=== PATIENT | female | born 1985 | race Caucasian/White ===

== ENCOUNTER 2017-02-07 07:01 | Day surgery (SDC) | payer SELFPAY ==
[2017-02-07] VITALS (17 sets, daily range): BP systolic 116–147; BP diastolic 64–95; PULSE 68–114; RESP 13–18; TEMP 97.6–99; O2SAT 91–99; Ht 165.1 cm; Wt 87.6 kg
[~2017-02-07] VITALS: Ht 165.1 cm; Wt 87.6 kg
[~2017-02-07 07:01] MED LIST: FENTANYL 100mcg/2ml INJECTION IV PRN; LIDOCAINE 1% (10mg/ml) 2ml SDV INJ ONE; LR 1,000 ML IV SCH; MIDAZOLAM 5mg/5ml INJECTION IV PRN
--- OUTSIDE RECORDS SUMMARY | 2017-02-07 07:06 | XMS REPORT | Continuity of Care Document ---
Author Author [facility] Organization [facility] Address Unknown Phone Unavailable Allergies Active Description Code Type Severity Reaction Onset Reported/Identified Relationship to Patient Clinical Status Yes NO NAME AVAILABLE 24916 DRUG N/A N/A Medications Medication Packaging Start Date Stop Date Route Dosage Sig ONDANSETRON HCL 4 MG/2ML IJ SOLN 08/07/2016 Intravenous 4 ONCE SODIUM CHLORIDE 0.9 % IV BOLUS 08/07/2016 08/07/2016 Intravenous 1000 BOLUS MECLIZINE HCL 25 MG PO TABS 08/07/2016 Oral 25 3 TIMES DAILY PRN IOHEXOL 350 MG/ML IV SOLN 08/07/2016 Intravenous 100 ONCE ONDANSETRON HCL 4 MG/2ML IJ SOLN 12/26/2016 Intravenous 4 ONCE SODIUM CHLORIDE 0.9 % IV BOLUS 12/26/2016 12/27/2016 Intravenous 1000 BOLUS Problems Date Dx Coded Attending Type Code Diagnosis Diagnosed By 06/22/2016 RICHARD FREED S49.91XA Unspecified injury of right shoulder and upper arm, initial encounter 06/22/2016 A S49.91XA Unspecified injury of right shoulder and upper arm, initial encounter 08/07/2016 USMAN HOOPER V 220924 Dizziness USMAN HOOPER 08/07/2016 USMAN HOOPER V 120 Emesis USMAN HOOPER 08/07/2016 USMAN HOOPER V H83.09 Labyrinthitis, unspecified ear USMAN HOOPER 08/07/2016 USMAN HOOPER V J01.90 Acute sinusitis, unspecified USMAN HOOPER 08/07/2016 USMAN HOOPER V N20.0 Calculus of kidney USMAN HOOPER 09/24/2016 V 186 Injections 09/24/2016 V 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 Transsexualism 11/12/2016 A S13.9XXA Sprain of joints and ligaments of unspecified parts of neck, initial encounter 11/12/2016 A W00.9XXA Unspecified fall due to ice and snow, initial encounter 11/16/2016 RICHARD FREED A N30.01 Acute cystitis with hematuria 12/26/2016 JANINA SPENCER V 120 Emesis SPENCER, JANINA Camacho 12/26/2016 JANINA SPENCER V 35 Diarrhea SPENCER, JANINA Camacho 12/26/2016 JANINA SPENCER V R11.2 Nausea with vomiting, unspecified SPENCER, JANINA Camacho 12/26/2016 JANINA SPENCER V R19.7 Diarrhea, unspecified SPENCER, JANINA Camacho 02/02/2017 ADMITTING Z01.818 Encounter for other preprocedural examination Procedures Code Description Performed By Performed On [id number] XR SHOULDER UNILATERAL MIN 2 VIEWS 06/22/2016 Results Test Result Range PAP LIQUID PAP SCREENING - 03/04/15 08:00 PAP RESULT NEGATIVE NEGATIVE HUMAN PAPILLOMAVIRUS - 03/04/15 08:00 HPV RESULT NEGATIVE NEGATIVE CBC WITH DIFF - 03/14/15 08:30 WBC 4.1 10*3/uL 4.3-10.8 RBC 4.61 10*6/uL 4.20-5.40 HGB 12.3 g/dL 12.0-16.0 HCT 36.8 % 37-47 MCV 80 fL 81-99 MCH 27 pg 26-34 MCHC 33 g/dL 31-37 PLATELET COUNT 208 10*3/uL 150-400 RDWCV 14.2 % 11.5-14.5 DIFF TYPE AUTOMATED DIFF NEUTROPHIL % 65 % 36-66 LYMPHOCYTE % 24 % 24-44 MONOCYTE % 9 % 1-10 EOSINOPHIL % 2 % 0-6 BASOPHIL % 1 % 0-2 ABS. NEUTROPHILS 2.7 10*3/uL 1.55-7.13 ABS. LYMPHOCYTES 1.0 10*3/uL 1.0-4.8 ABS. MONOCYTES 0.4 10*3/uL 0.4-1.08 ABS. EOSINOPHILS 0.1 10*3/uL 0.0-0.65 ABS. BASOPHILS 0.0 10*3/uL 0.0-0.11 ABSOLUTE NUCLEATED RBC 0.00 10*3/uL PERCENT NUCLEATED RBC 0 TSH WITH REFLEX TO FREE T4 - 03/14/15 08:30 TSH 2.80 m[iU]/mL 0.35-4.90 URINALYSIS REFLEX TO CULTURE - 04/07/15 13:06 COLOR YELLOW APPEARANCE CLOUDY CLEAR SPECIFIC GRAVITY 1.022 1.005-1.030 PH, URINE 6.0 5.0-9.0 PROTEIN SMALL mg/dL NEGATIVE GLUC NEGATIVE mg/dL NEGATIVE KETONES NEGATIVE mg/dL NEGATIVE BILIRUBIN NEGATIVE NEGATIVE BLOOD MODERATE NEGATIVE NITRITE NEGATIVE NEGATIVE UROBILINOGEN NORMAL mg/dL NORMAL LEUKOCYTE ESTERASE LARGE NEGATIVE WBC'S 33 [HPF] 0-4 RBC'S 7 [HPF] 0-1 MUCUS MANY [LPF] SQUAMOUS EPITHELIAL CELLS 48 [HPF] 0-1 BACTERIA MANY [HPF] URINE CULTURE - 04/07/15 13:06 SOURCE SOURCE: CLEAN CATCH URINE REQUISITION NOTE REQUISITION NOTE: NONE CULTURE RESULTS CULTURE RESULTS: NO FURTHER WORKUP REPORT STATUS REPORT STATUS: 04/09/2015 FINAL CBC WITH DIFF - 04/07/15 13:07 WBC 5.0 10*3/uL 4.0-10.8 RBC 4.65 10*6/uL 4.20-5.40 HGB 12.2 g/dL 12.0-16.0 HCT 37.7 % 37-47 MCV 81 fL 81-99 MCH 26 pg 26-34 MCHC 32 g/dL 31-37 PLATELET COUNT 209 10*3/uL 150-400 RDWCV 14.2 % 11.5-14.5 DIFF TYPE AUTOMATED DIFF NEUTROPHIL % 62 % 36-66 LYMPHOCYTE % 21 % 24-44 MONOCYTE % 14 % 1-10 EOSINOPHIL % 3 % 0-6 BASOPHIL % 1 % 0-2 ABS. NEUTROPHILS 3.1 10*3/uL 1.55-7.13 ABS. LYMPHOCYTES 1.0 10*3/uL 1.0-4.8 ABS. MONOCYTES 0.7 10*3/uL 0.4-1.08 ABS. EOSINOPHILS 0.2 10*3/uL 0.0-0.65 ABS. BASOPHILS 0.0 10*3/uL 0.0-0.11 ABSOLUTE NUCLEATED RBC 0.10 10*3/uL CBC WITH DIFF - 04/22/15 06:46 WBC 3.9 10*3/uL 4.0-10.8 RBC 5.05 10*6/uL 4.20-5.40 HGB 13.2 g/dL 12.0-16.0 HCT 39.3 % 37-47 MCV 78 fL 81-99 MCH 26 pg 26-34 MCHC 34 g/dL 31-37 PLATELET COUNT 203 10*3/uL 150-400 RDWCV 13.6 % 11.5-14.5 DIFF TYPE AUTOMATED DIFF NEUTROPHIL % 64 % 36-66 LYMPHOCYTE % 24 % 24-44 MONOCYTE % 10 % 1-10 EOSINOPHIL % 2 % 0-6 BASOPHIL % 1 % 0-2 ABS. NEUTROPHILS 2.5 10*3/uL 1.55-7.13 ABS. LYMPHOCYTES 0.9 10*3/uL 1.0-4.8 ABS. MONOCYTES 0.4 10*3/uL 0.4-1.08 ABS. EOSINOPHILS 0.1 10*3/uL 0.0-0.65 ABS. BASOPHILS 0.0 10*3/uL 0.0-0.11 ABSOLUTE NUCLEATED RBC 0.10 10*3/uL TYPE AND SCREEN - 04/22/15 06:46 ABO/RH (D) B NEGATIVE ANTIBODY SCREEN NEGATIVE CBC WO DIFF - 04/23/15 06:14 WBC 5.2 10*3/uL 4.0-10.8 RBC 4.14 10*6/uL 4.20-5.40 HGB 11.1 g/dL 12.0-16.0 HCT 32.7 % 37-47 MCV 79 fL 81-99 MCH 27 pg 26-34 MCHC 34 g/dL 31-37 PLATELET COUNT 176 10*3/uL 150-400 RDWCV 13.9 % 11.5-14.5 COMPREHENSIVE METABOLIC PANEL - 12/31/15 15:30 ALBUMIN 4.4 g/dL 3.4-4.8 ALKALINE PHOSPHATASE 79 U/L 29-122 ALT 15 U/L 10-46 AST 18 U/L 16-37 BILIRUBIN,TOTAL 0.5 mg/dL 0.2-1.3 BUN BLOOD 10 mg/dL 6-20 CALCIUM 9.5 mg/dL 8.7-10.5 CHLORIDE 108 mmol/L 99-111 CO2 28 mmol/L 20-36 CREATININE 0.68 mg/dL 0.40-1.10 EGFR > mL/min >59 GLUCOSE 96 mg/dL 74-106 POTASSIUM 3.8 mmol/L 3.6-4.9 PROTEIN TOTAL 7.4 g/dL 6.4-8.3 SODIUM 142 mmol/L 136-145 CBC WITH AUTO DIFFERENTIAL - 12/31/15 15:30 BASOPHILS RELATIVE PERCENT 0.5 % 0.0-2.5 EOSINOPHILS RELATIVE PERCENT 0.8 % <=5.0 HEMATOCRIT 41.3 % 34.9-44.5 HEMOGLOBIN 13.7 g/dL 12.0-15.5 LYMPHOCYTES RELATIVE PERCENT 24.8 % 22.0- 49.0 MEAN CORPUSCULAR HEMOGLOBIN 28.1 pg 26.0- 34.0 MEAN CORPUSCULAR HEMOGLOBIN CONC 33.2 g/dL 31.0-37.0 MEAN CORPUSCULAR VOLUME 84.7 fL 81.6- 98.3 MONOCYTES RELATIVE PERCENT 8.7 % 2.0-9.0 NEUTROPHILS RELATIVE PERCENT 65.2 % 40.0- 75.0 PLATELET COUNT 218 10E9/L 150-450 RED BLOOD CELL COUNT 4.88 10E12/L 3.90- 5.03 RED CELL DISTRIBUTION WIDTH 14.1 % 11.9- 15.5 [id number] 4.5 10E9/L 3.5-10.5 7605254 1.10 10E9/L 0.90-2.90 9813694 0.40 10E9/L 0.30-0.90 0647414 0.00 10E9/L 0.05-0.50 6693551 2.90 10E9/L 1.70-7.00 [id number] 0.00 10E9/L 0.00-0.30 TESTOSTERONE, FREE - 12/31/15 15:30 TESTOSTERONE,FREE 0.4 pg/mL 0.0 - 4.2 TESTOSTERONE, ESOTERIX - 01/20/16 09:56 TESTOSTERONE, ESOTERIX 14 ng/dL CBC WITH AUTO DIFFERENTIAL - 03/22/16 14:54 BASOPHILS RELATIVE PERCENT 0.4 % 0.0-2.5 EOSINOPHILS RELATIVE PERCENT 1.0 % <=5.0 HEMATOCRIT 38.6 % 34.9-44.5 HEMOGLOBIN 13.0 g/dL 12.0-15.5 LYMPHOCYTES RELATIVE PERCENT 23.0 % 22.0- 49.0 MEAN CORPUSCULAR HEMOGLOBIN 28.5 pg 26.0- 34.0 MEAN CORPUSCULAR HEMOGLOBIN CONC 33.8 g/dL 31.0-37.0 MEAN CORPUSCULAR VOLUME 84.5 fL 81.6- 98.3 MONOCYTES RELATIVE PERCENT 8.0 % 2.0-9.0 NEUTROPHILS RELATIVE PERCENT 67.6 % 40.0- 75.0 PLATELET COUNT 196 10E9/L 150-450 RED BLOOD CELL COUNT 4.57 10E12/L 3.90- 5.03 RED CELL DISTRIBUTION WIDTH 14.2 % 11.9- 15.5 0630035 5.8 10E9/L 3.5-10.5 9008701 1.30 10E9/L 0.90-2.90 4140559 0.50 10E9/L 0.30-0.90 7521068 0.10 10E9/L 0.05-0.50 6196431 3.90 10E9/L 1.70-7.00 8216033 0.00 10E9/L 0.00-0.30 HEPATIC FUNCTION PANEL - 03/22/16 14:54 ALBUMIN 4.4 g/dL 3.4-4.8 ALKALINE PHOSPHATASE 86 U/L 29-122 ALT 12 U/L 10-46 AST 19 U/L 16-37 BILIRUBIN DIRECT 0.1 mg/dL <=0.3 BILIRUBIN,TOTAL 0.4 mg/dL 0.2-1.3 PROTEIN TOTAL 7.2 g/dL 6.4-8.3 TESTOSTERONE, FREE - 03/22/16 14:54 TESTOSTERONE,FREE 4.2 pg/mL 0.0 - 4.2 CBC WITH AUTO DIFFERENTIAL - 08/07/16 08:43 BASOPHILS RELATIVE PERCENT 0.3 % 0.0-2.5 EOSINOPHILS RELATIVE PERCENT 0.5 % <=5.0 HEMATOCRIT 42.5 % 34.9-44.5 HEMOGLOBIN 13.9 g/dL 12.0-15.5 LYMPHOCYTES RELATIVE PERCENT 15.3 % 22.0- 49.0 MEAN CORPUSCULAR HEMOGLOBIN 27.1 pg 26.0- 34.0 MEAN CORPUSCULAR HEMOGLOBIN CONC 32.8 g/dL 31.0-37.0 MEAN CORPUSCULAR VOLUME 82.7 fL 81.6- 98.3 MONOCYTES RELATIVE PERCENT 6.3 % 2.0-9.0 NEUTROPHILS RELATIVE PERCENT 77.6 % 40.0- 75.0 PLATELET COUNT 227 10E9/L 150-450 RED BLOOD CELL COUNT 5.13 10E12/L 3.90- 5.03 RED CELL DISTRIBUTION WIDTH 15.1 % 11.9- 15.5 [id number] 7.2 10E9/L 3.5-10.5 3905546 1.10 10E9/L 0.90-2.90 4627263 0.50 10E9/L 0.30-0.90 8950723 0.00 10E9/L 0.05-0.50 0632006 5.60 10E9/L 1.70-7.00 0607043 0.00 10E9/L 0.00-0.30 TSH - 08/07/16 08:43 TSH 1.943 uIU/mL 0.400-4.000 URINALYSIS, REFLEX CULTURE IF NEEDED - 08/07/16 10:00 AMORPHOUS Rare RARE APPEARANCE Hazy [none] BACTERIA 1+ [none] BILIRUBIN UA Negative Negative COLOR Yellow [none] GLUCOSE UA Negative Negative HEMOGLOBIN UA 1+ Negative LEUKOCYTE ESTERASE UA Negative Negative MUCOUS Rare FEW NITRATE UA Negative Negative PH UA 6.5 5.0-8.0 PROTEIN UA Trace Negative RBC UA 11-20 /HPF 0-3 SPECIFIC GRAVITY UA 1.016 1.003-1.030 SQUAMOUS EPITHELIAL 3+ 1+ UROBILINOGEN UA 0.2 mg/dL 0.2 WBC UA 0-3 /HPF 0-3 [id number] Negative Negative TESTOSTERONE, FREE - 10/13/16 13:34 TESTOSTERONE,FREE 4.3 pg/mL 0.0 - 4.2 CBC WITH AUTO DIFFERENTIAL - 12/26/16 15:30 BASOPHILS RELATIVE PERCENT 0.1 % 0.0-2.5 EOSINOPHILS RELATIVE PERCENT 0.0 % <=5.0 HEMATOCRIT 47.4 % 34.9-44.5 HEMOGLOBIN 16.5 g/dL 12.0-15.5 LYMPHOCYTES RELATIVE PERCENT 3.2 % 22.0- 49.0 MEAN CORPUSCULAR HEMOGLOBIN 28.5 pg 26.0- 34.0 MEAN CORPUSCULAR HEMOGLOBIN CONC 34.8 g/dL 31.0-37.0 MEAN CORPUSCULAR VOLUME 81.9 fL 81.6- 98.3 MONOCYTES RELATIVE PERCENT 4.1 % 2.0-9.0 NEUTROPHILS RELATIVE PERCENT 92.6 % 40.0- 75.0 NUCLEATED RED BLOOD CELLS 0 /100 <=0 PLATELET COUNT 229 10E9/L 150-450 RED BLOOD CELL COUNT 5.79 10E12/L 3.90- 5.03 RED CELL DISTRIBUTION WIDTH 13.6 % 11.9- 15.5 2496177 6.9 10E9/L 3.5-10.5 0932134 0.22 10E9/L 0.90-2.90 3461390 0.28 10E9/L 0.30-0.90 5104559 0.00 10E9/L 0.05-0.50 3575205 6.37 10E9/L 1.70-7.00 1192148 0.01 10E9/L 0.00-0.30 0634574 0 % LIPASE - 12/26/16 15:30 LIPASE 25 U/L 6-51 CBC WO DIFF - 02/02/17 11:32 WBC 4.84 10*3/uL 4.00-10.80 RBC 5.23 10*6/uL 4.20-5.40 HGB 14.8 g/dL 12.0-16.0 HCT 43.5 % 37.0-47.0 MCV 83 fL 81-99 MCH 28 pg 26.0-34.0 MCHC 34.0 g/dL 31.0-37.0 PLATELET COUNT 233 10*3/uL 150-400 RDWCV 13.8 % 11.5-14.5 ABSOLUTE NUCLEATED RBC 0.00 10*3/uL 0.00 PERCENT NUCLEATED RBC 0.0 % 0.0 MPV 10.3 fL 9.4-12.3 RDW STANDARD DEVIATION 41.1 fL 36.4-46.3 Encounters ACCT No. Visit Date/Time Discharge Status Pt. Type Provider Facility Loc./Unit Complaint [id number] 03/19/2015 13:50:46 03/19/2015 23:59:59 [facility] [id number]/14/2015 15:24:53 03/14/2015 23:59:00 [place] [facility] [id number] 03/04/2015 08:42:27 03/04/2015 23:59:00 DIS Outpatient RICHARD FREED [facility] [place]
--- OUTSIDE RECORDS SUMMARY | 2017-02-07 07:06 | XMS REPORT ---
Author Author CONG PAYNE Organization [employer] Address Unknown Phone Unavailable Care Team Providers Care Logging Shovel Operator Name Role Phone CONG PAYNE CP Unavailable Allergies No Known Allergies Problems Problem Type Condition ICD-9 Code Onset Dates Condition Status Problem Dysmenorrhea 625.3 Active Problem Uterine fibroid, unspecified 218.9 Active Problem Menorrhagia 626.2 Active Medications No Known Medications Results No Known Results Summary Purpose [employer] Submission
--- OUTSIDE RECORDS SUMMARY | 2017-02-07 07:07 | XMS REPORT ---
Author Author CONG PAYNE Organization [employer] Address Unknown Phone Unavailable Care Team Providers Care Manager Managed Backup Services Name Role Phone CONG PAYNE CP Unavailable Allergies, Adverse Reactions, Alerts Substance Reaction Event Type N.K.D.A. Info Not Available Non Drug Allergy Problems Problem Type Condition Code Onset Dates Condition Status Problem Dysmenorrhea 625.3 Active Assessment Menorrhagia 626.2 Active Problem Menorrhagia 626.2 Active Assessment Dysmenorrhea 625.3 Active Medications Medication Code System Code Instructions Start Date End Date Status Dosage Zoloft NDC 1554 50 mg orally once a day with the 100mg for a total dose of 150mg 1 tab(s) Sprintec NDC 10629 35 mcg-0.25 mg orally once a day March 04, 2015 1 tab(s) Zoloft NDC 1554 100 mg orally once a day with the 50mg for total dose of 150mg 1 tab(s) Procedures Procedure Coding System Code Date Office Consult, Level 3 CPT-4 34371 March 14, 2015 Vital Signs Date/Time: March 14, 2015 BMI 28.86 Index Weight 174.8 lbs Height 65.25 in Pain Scale 0/10 0-10 Blood Pressure Diastolic 79 mm Hg Blood Pressure Systolic 117 mm Hg Results No Known Results Summary Purpose [employer] Submission
--- OUTSIDE RECORDS SUMMARY | 2017-02-07 07:07 | XMS REPORT ---
Author Author CONG PAYNE Organization [employer] Address Unknown Phone Unavailable Care Team Providers Care Bed Manager Name Role Phone CONG PAYNE CP Unavailable Allergies No Known Allergies Problems Problem Type Condition Code Onset Dates Condition Status Problem Dysmenorrhea 625.3 Active Problem Uterine fibroid, unspecified 218.9 Active Problem Menorrhagia 626.2 Active Assessment Uterine fibroid, unspecified 218.9 Active Assessment Menorrhagia 626.2 Active Assessment Dysmenorrhea 625.3 Active Medications No Known Medications Results No Known Results Summary Purpose [employer] Submission
--- OUTSIDE RECORDS SUMMARY | 2017-02-07 07:07 | XMS REPORT | Continuity of Care Document ---
Author Author [facility] Organization [facility] Address Unknown Phone Unavailable Allergies Active Description Code Type Severity Reaction Onset Reported/Identified Relationship to Patient Clinical Status Yes NO NAME AVAILABLE 94234 DRUG N/A N/A Medications Medication Packaging Start [...] arm, initial encounter 08/07/2016 USMAN HOOPER V [id number] Dizziness USMAN HOOPER 08/07/2016 USMAN HOOPER V [...] Procedures Code Description Performed By Performed On [id number] XR SHOULDER UNILATERAL MIN 2 VIEWS 06/22/2016 [...] CELL DISTRIBUTION WIDTH 14.1 % 11.9- 15.5 2497226 4.5 10E9/L 3.5-10.5 0371233 1.10 10E9/L 0.90-2.90 0853927 0.40 10E9/L 0.30-0.90 8712842 0.00 10E9/L 0.05-0.50 7648949 2.90 10E9/L 1.70-7.00 4577522 0.00 10E9/L 0.00-0.30 TESTOSTERONE, FREE - 12/31/15 [...] CELL DISTRIBUTION WIDTH 14.2 % 11.9- 15.5 3610184 5.8 10E9/L 3.5-10.5 4438586 1.30 10E9/L 0.90-2.90 6631034 0.50 10E9/L 0.30-0.90 5173036 0.10 10E9/L 0.05-0.50 8304245 3.90 10E9/L 1.70-7.00 6924466 0.00 10E9/L 0.00-0.30 HEPATIC FUNCTION PANEL - [...] CELL DISTRIBUTION WIDTH 15.1 % 11.9- 15.5 1461620 7.2 10E9/L 3.5-10.5 7163861 1.10 10E9/L 0.90-2.90 1209324 0.50 10E9/L 0.30-0.90 3854586 0.00 10E9/L 0.05-0.50 4066788 5.60 10E9/L 1.70-7.00 6557022 0.00 10E9/L 0.00-0.30 TSH - 08/07/16 08:43 [...] mg/dL 0.2 WBC UA 0-3 /HPF 0-3 9074595 Negative Negative TESTOSTERONE, FREE - 10/13/16 13:34 [...] CELL DISTRIBUTION WIDTH 13.6 % 11.9- 15.5 7978419 6.9 10E9/L 3.5-10.5 4923511 0.22 10E9/L 0.90-2.90 0196799 0.28 10E9/L 0.30-0.90 9064820 0.00 10E9/L 0.05-0.50 3656967 6.37 10E9/L 1.70-7.00 6373129 0.01 10E9/L 0.00-0.30 6267316 0 % LIPASE - 12/26/16 15:30 LIPASE [...] Status Pt. Type Provider Facility Loc./Unit Complaint [id number] 03/19/2015 13:50:46 03/19/2015 23:59:59 [place] [facility] [id number] 03/14/2015 15:24:53 03/14/2015 23:59:00 DIS Outpatient KERRY [facility] [place] [id number] 03/04/2015 08:42:27 03/04/2015 23:59:00 DIS Outpatient RICHARD FREED [facility] [place]
--- OUTSIDE RECORDS SUMMARY | 2017-02-07 07:07 | XMS REPORT ---
Author Author CONG PAYNE Organization [employer] Address Unknown Phone Unavailable Care Team Providers Care Computer Forwarding System Markup Clerk Name Role Phone CONG PAYNE CP Unavailable Allergies, Adverse Reactions, Alerts Substance Reaction Event Type N.K.D.A. Info Not Available Non Drug Allergy Problems Problem Type Condition ICD-9 Code Onset Dates Condition Status Problem Dysmenorrhea 625.3 Active Problem Uterine fibroid, unspecified 218.9 Active Problem Menorrhagia 626.2 Active Assessment Menorrhagia 626.2 Active Assessment Dysmenorrhea 625.3 Active Assessment FOLLOW-UP SURGERY NOS V67.00 Active Assessment Uterine fibroid, unspecified 218.9 Active Medications Medication Code System Code Instructions Start Date End Date Status Dosage Zoloft NDC 1554 150 mg orally once a day with the 50mg for total dose of 150mg 1 tab(s) Procedures Procedure Coding System Code Date Post op visit CPT-4 42625 June 05, 2015 Vital Signs Date/Time: June 05, 2015 BMI 28.93 Index Weight 175.2 lbs Height 65.25 in Pain Scale 0/10 0-10 Blood Pressure Diastolic 68 mm Hg Blood Pressure Systolic 114 mm Hg Results No Known Results Summary Purpose [employer] Submission
--- OUTSIDE RECORDS SUMMARY | 2017-02-07 07:07 | XMS REPORT ---
Author Author RICHARD FREED Organization [employer] Address Unknown Phone Unavailable Care Team Providers Care Helicopter Crew Chief Name Role Phone RICHARD FREED CP Unavailable Allergies, Adverse Reactions, Alerts Substance Reaction Event Type N.K.D.A. Info Not Available Non Drug Allergy Problems Problem Type Condition Code Onset Dates Condition Status Assessment Exam. Annual Physical Adult V70.0 Active Assessment Screen for malignancy, cervix V76.2 Active Assessment Exam Gynecological V72.31 Active Assessment SPECIAL SCREEN EXAM HPV V73.81 Active Assessment Menorrhalgia 625.3 Active Assessment Screen for lipid disorder V77.91 Active Medications Medication Code System Code Instructions Start Date End Date Status Dosage Zoloft NDC 1554 50 mg orally once a day with the 100mg for a total dose of 150mg 1 tab(s) Sprintec NDC 62144 35 mcg-0.25 mg orally once a day March 04, 2015 1 tab(s) Zoloft NDC 1554 100 mg orally once a day with the 50mg for total dose of 150mg 1 tab(s) Procedures Procedure Coding System Code Date Prev Med, new pt, 18-39 yr CPT-4 73805 March 04, 2015 Specimen handling CPT-4 60199 March 04, 2015 Vital Signs Date/Time: March 04, 2015 BMI 29.19 Index Weight 176.8 lbs Height 65.25 in Pain Scale 0/10 0-10 Blood Pressure Diastolic 74 mm Hg Blood Pressure Systolic 114 mm Hg Results No Known Results Summary Purpose [employer] Submission
--- OUTSIDE RECORDS SUMMARY | 2017-02-07 07:07 | XMS REPORT ---
Author Author ALDO DANG Organization [employer] Address Unknown Phone Unavailable Care Team Providers Care Lock Tender Name Role Phone ALDO DANG CP Unavailable Allergies, Adverse Reactions, Alerts Substance Reaction Event Type N.K.D.A. Info Not Available Non Drug Allergy Problems Problem Type Condition Code Onset Dates Condition Status Problem Dysmenorrhea 625.3 Active Problem Uterine fibroid, unspecified 218.9 Active Problem Menorrhagia 626.2 Active Assessment vaginal discharge 623.5 Active Medications Medication Code System Code Instructions Start Date End Date Status Dosage Diflucan NDC 3884 150 mg orally once repeat in 3 days Aug 06, 2015 1 tab(s) Zoloft NDC 1554 150 mg orally once a day with the 50mg for total dose of 150mg 1 tab(s) Procedures Procedure Coding System Code Date Office Visit, estab pt, Level 3 CPT-4 97455 Aug 06, 2015 Vital Signs Date/Time: Aug 06, 2015 Pain Scale 3 0-10 Temperature 98 F Weight 177 lbs Oximetry 98 % Results No Known Results Summary Purpose [employer] Submission
--- OUTSIDE RECORDS SUMMARY | 2017-02-07 07:07 | XMS REPORT ---
Author Author CONG PAYNE Organization [employer] Address Unknown Phone Unavailable Care Team Providers Care Automobile Body Repairer Helper Name Role Phone CONG PAYNE CP Unavailable Allergies No Known Allergies Problems Problem Type Condition ICD-9 Code Onset Dates Condition Status Problem Dysmenorrhea 625.3 Active Problem Uterine fibroid, unspecified 218.9 Active Problem Menorrhagia 626.2 Active Medications No Known Medications Results No Known Results Summary Purpose [employer] Submission
--- OUTSIDE RECORDS SUMMARY | 2017-02-07 07:07 | XMS REPORT ---
Author Author CONG PAYNE Organization [employer] Address Unknown Phone Unavailable Care Team Providers Care Warper Tender Name Role Phone CONG PAYNE CP Unavailable Allergies No Known Allergies Problems Problem Type Condition Code Onset Dates Condition Status Problem Dysmenorrhea 625.3 Active Problem Uterine fibroid, unspecified 218.9 Active Problem Menorrhagia 626.2 Active Medications Medication Code System Code Instructions Start Date End Date Status Dosage Keflex NDC 1271 500 mg orally 4 times a day April 07, 2015 1 cap(s) Results No Known Results Summary Purpose [employer] Submission
--- OUTSIDE RECORDS SUMMARY | 2017-02-07 07:07 | XMS REPORT ---
Author Author CONG PAYNE Organization [employer] Address Unknown Phone Unavailable Care Team Providers Care Reimbursement Auditor Name Role Phone CONG PAYNE CP Unavailable [...] Start Date End Date Status Dosage Zoloft ND 1554 150 mg orally once a day with the 50mg for total dose of 150mg 1 tab(s) Procedures Procedure Coding System Code Date Post op visit CPT-4 75218 May 05, 2015 Vital Signs Date/Time: May 05, 2015 BMI 28.24 Index Weight 171 lbs Height 65.25 in Pain Scale 0/10 0-10 Blood Pressure Diastolic 64 mm Hg Blood Pressure Systolic 118 mm Hg Results No Known Results Summary Purpose [employer] Submission
--- OUTSIDE RECORDS SUMMARY | 2017-02-07 07:07 | XMS REPORT ---
Author Author CONG PAYNE Organization [employer] Address Unknown Phone Unavailable Care Team Providers Care Director Of Supply Chain Name Role Phone CONG PAYNE Unavailable Allergies No Known Allergies Problems Problem Type Condition Code Onset Dates Condition Status Problem Dysmenorrhea 625.3 Active Assessment Menorrhagia 626.2 Active Problem Menorrhagia 626.2 Active Medications No Known Medications Procedures Procedure Coding System Code Date Routine venipuncture CPT-4 77924 March 14, 2015 Results No Known Results Summary Purpose [employer] Submission
[2017-02-07] MEDS ORDERED: LIDOCAINE 1%/EPI 1:100,000 20ml MDV ONE ×2 (07:13→08:56)
[2017-02-07] MEDS ORDERED: TEST200V21 IM (07:44)
[2017-02-07] MEDS ORDERED: SERT100T PO (07:44)
[2017-02-07] MEDS ORDERED: CEFAZOLIN 1 GRAM INJECTION IV ONE (08:00)
[2017-02-07 08:53] LABS: BASOPHILS % (AUTO) 0.4 % (0-2); EOSINOPHILS % (AUTO) 0.8 % (0-4); HCT - HEMATOCRIT 42.9 % (36-46); HGB - HEMOGLOBIN 14.9 GM/DL (12-16); IMMATURE GRANULOCYTE # (AUTO) 0.01 T/MM3 (0.00-0.03); IMMATURE GRANULOCYTE % (AUTO) 0.2 % (0.0-0.5); LYMPHOCYTES # (AUTO) 1.2 T/MM3 (1-4.8); LYMPHOCYTES % (AUTO) 23.5 % (23-45); MEAN CORPUSCULAR HGB 28.4 UUG (26-34); MEAN CORPUSCULAR HGB CONC(MCHC 34.7 GM/DL (31-37); MEAN CORPUSCULAR VOLUME 81.9 UM3 (80-100); MEAN PLATELET VOLUME 9.8 UM3 (9.4-12.4); MONOCYTES # (AUTO) 0.3 T/MM3 (0-0.8); MONOCYTES % (AUTO) 6.5 % (0-9.0); NEUTROPHILS #(AUTO)-ABSOLUTE 3.5 T/MM3 (1.8-7.7); NEUTROPHILS % (AUTO) 68.6 % (33-66); RED BLOOD COUNT 5.24 M/MM3 (4.00-5.20); WBC - WHITE BLOOD COUNT 5.1 T/MM3 (4.5-11.0)
--- NOTE | 2017-02-07 08:56 | ANESPREOP ---
Anesthesia Record Date and Time DATE: 02/07/17 TIME: 08:54 Pre-Op Diagnosis Female to male Proposed Surgical Procedure DOUBLE MASTECTOMY WITH FREE NIPPLE GRAFT Allergies: Coded Allergies: sulfamethoxazole (Verified Allergy, Unknown, 02/07/17) trimethoprim (Verified Allergy, Unknown, 02/07/17) Ht/Wt/BMI Height: 5 ' 5.00 " Weight: 87.600 kg BMI: 32.1 kg/m2 Vital Signs Date Time Temp Pulse Resp B/P Pulse Ox O2 Delivery O2 Flow Rate FiO2 02/07/17 07:36 97.6 68 13 146/95 96 Room Air Medications Inpatient Medications Current Medications Medications (Trade) Dose Ordered Sig/Kai Start Time Stop Time Status Last Admin Dose Admin Lactated Ringer's (Lactated Ringers) 1,000 ml @ 50 mls/hr Q20H 02/07/17 07:00 02/07/17 08:05 50 MLS/HR Midazolam HCl (Versed) VERSED 0.5-3MG IV PUSH Q... Q10MIN PRN 02/07/17 07:00 Fentanyl (Fentanyl) FENTANYL 25-50MCG IV P... PRN PRN 02/07/17 07:00 Sertraline (Zoloft) 100 Mg Tablet, 150 MG PO DAILY, (Reported) Last Taken: on 02/06/17 Testosterone Cypionate (Testosterone Cypionate) 200 Mg/1 Ml Vial, 150 MG IM Q2WK, (Reported) Last Taken: on 01/25/17 Currently on Beta [place]: No Medical/Surgical History Anesthesia PMH: Denies: *Diabetes, Anesthesia Reactions (no known airway issues ), Arthritis, Cancer, Clotting Problems, Glaucoma, Malignant Hyperthermia, Renal Disease, Sleep Apnea, Thyroid Disease Smoking Status: Never smoker Has pt. smoked today?: No Use Chewing Tobacco?: No Second Hand Exposure: No Substance Use Type: does not use Alcohol Intake: a few times a month HX of Last Menstrual Period: HYST. Past Surgical History Orthopedic Surgeries: Abdominal Surgeries: Yes - GALLBLADDER Genitourinary Surgeries: Cardiac Surgeries: Endocrine Surgeries: Reproductive Surgeries: Yes - MARISA., x2 Neurological Surgeries: Ear Surgeries: Nose Surgeries: Throat Surgeries: Other Surgeries: Anesthesia Adverse Reactions: FOUND none Family Hx of Anesthesia Advers: none Hx of Motion Sickness: No Pertinent Findings EKG Rhythm: Sinus Rhythm Physical Exam Respiratory: Bilat breath sounds equal, Lungs clear Cardiovascular: FOUND Regular rate, rhythm, FOUND No murmur Airway Assessment TMD: 3 Fingerbreadths Overall Assessment: No Airway Concerns ASA: 1 Plan Anesthesia Plan: GETA Discussion Discussed risks/options/alternatives of anesthesia and questions answered. Patient consents. Nursing pain assessment noted. Attestation Statement Prior to the delivery of any anesthetic medication, I examined the patient, developed the plan, obtained the patient's consent and discussed the risk and benefits of the procedure with the patient/guardian. JARET SPARROW REGULATORY ADMINISTRATOR Feb 07, 2017 08:56
[2017-02-07] MEDS ORDERED: MIDAZOLAM 2mg/2ml INJECTION IV ONE (09:00)
[2017-02-07] MEDS ORDERED: FENTANYL 250mcg/5ml INJECTION ONE (09:05)
[2017-02-07] MEDS ORDERED: PROPOFOL 200mg 20 ML IV ONE (09:05)
[2017-02-07] MEDS ORDERED: ROCURONIUM 50mg/5ml INJECTION IV ONE (09:05)
[2017-02-07] MEDS ORDERED: KETAMINE 500mg/10ml INJECTION ONE (09:06)
[2017-02-07] MEDS ORDERED: LIDOCAINE (2%) 100 MG/5 ML PF SYRINGE IV ONE (09:15)
[2017-02-07] MEDS ORDERED: DEXAMETHASONE 4mg/ml - 1ml INJECTION ONE (10:17)
[2017-02-07] MEDS ORDERED: FENTANYL 100mcg/2ml INJECTION ONE (10:18)
--- NOTE | 2017-02-07 12:15 | PDPROCED ---
Procedure Note Date 02/07/17 Procedure Name Bilateral FTM subcutaneous mastectomy with double incision and free nipple graft Procedure Detail Preop dx: Transgender male with macromastia and breast ptosis Postop dx: Same Anesthesia: MAC Case: Clean EBL: Per Anesthesia Complications: None STEPAN VELASQUEZ MD Feb 07, 2017 12:14
[2017-02-07] MEDS ORDERED: ONDANSETRON 4mg/2ml INJECTION ONE (12:31)
[2017-02-07] MEDS ORDERED: SALINE FLUSH 10ml SYRINGE ONE (12:34)
[2017-02-07] MEDS ORDERED: ATROPINE 1mg/10ml Syringe IV PRN (12:45)
[2017-02-07] MEDS ORDERED: CEPH-583 PO (12:45)
[2017-02-07] MEDS ORDERED: OXYC1TAB8 PO (12:45)
[2017-02-07] MEDS ORDERED: OXYCODONE/APAP 5mg/325mg TABLET PO PRN (12:45)
[2017-02-07] MEDS ORDERED: ONDANSETRON 4mg/2ml INJECTION IV PRN (12:45)
[2017-02-07] MEDS ORDERED: ONDA4TAB4 PO (12:45)
--- NOTE | 2017-02-07 13:16 | ANESPO ---
Post-Op Note Date 02/07/17 Time: 13:16 Status Pt Participated in Evaluation: Pt participated in person Vital Signs Date Time Temp Pulse Resp B/P Pulse Ox O2 Delivery O2 Flow Rate FiO2 02/07/17 13:10 109 16 138/72 92 Room Air 02/07/17 13:05 99.0 02/07/17 12:40 6.00 Respiratory Function: Airway patent, Regular respirations Cardiovascular Function: Regular pulse Telemetry Pattern: SR Mental Status: Alert/oriented Pain Level Intensity: 0 Hydration: IV infusing Complications during Recovery None apparent Follow-Up Instructions Instructions Per Surgeon JARET SPARROW CRNA Feb 07, 2017 13:16
--- NOTE | 2017-02-07 14:27 | OPNOTEF ---
DATE OF OPERATION 02/07/2017 PREOPERATIVE DIAGNOSIS Transgender male with macromastia and breast ptosis. POSTOPERATIVE DIAGNOSIS Transgender male with macromastia and breast ptosis. OPERATION Bilateral iqcuvl-[id number]-ticl (FTM) mastoplasty with double incision and free nipple graft. SURGEON Dr. Marla Lindsey ANESTHESIA General INDICATIONS The patient is a 31-year-old transgender male, 2, para 2, who presented to discuss bilateral breast removal as part of his transition from female to male. He has been receiving testosterone therapy for the last 10-[address] Miranda. He has no plans for bottom surgery and has good social support. He has been visiting with Dr. Floyd for psychotherapy and his primary care physician is Dr. Ed Turner. His current bra size is 36D. He denies any personal or family history of breast cancer or disease. On exam, his breasts were pendulous and dense with grade 3 ptosis and asymmetric with wide areolae and less upper pole fullness and volume. He had mild to moderate striae. There were no discrete masses noted. There was also significant breast tissue laterally. In a detailed with the patient preoperatively, the risks, benefits, and alternatives of bilateral subcutaneous mastectomy with free nipple graft were reviewed including, although not limited to, bleeding, infection, poor or keloid scarring, delayed wound healing, partial or complete loss of skin flaps and/or nipple areolae, altered or absent nipple sensation, residual asymmetry, possible regrowth. The patient understood and wished to proceed. DESCRIPTION OF OPERATION The patient was marked preoperatively and was then brought to the operating room where, after suitable general anesthesia had been obtained, the breasts were prepped and draped in the usual sterile manner. Of note, he received 1 g of Ancef preoperatively and wore sequential stockings throughout. First, the breasts were infiltrated with 30 ml each of 0.5% lidocaine with 1:200,000 of epinephrine. After a strict wait for hemostasis, the inframammary incision was made sharply and carried down through the subcutaneous tissues using electrocautery. Hemostasis throughout was obtained using electrocautery. The breast tissue was then elevated at the level of the pectoralis fascia. The nipple was then detached and placed on the back table pending replacement. The upper portion of the incision was then made sharply and the skin flaps were dissected using electrocautery. The breast tissue was then handed off as a specimen. The wound was then copiously irrigated and meticulous hemostasis obtained using electrocautery. It was then temporarily closed over a #10 Mikhail-Zamorano drain that was brought out laterally. Attention was then turned to the left breast where identical dissection, resection and temporary closure was performed. At this time, the patient was placed into the upright position to check symmetry as well as the new placement of the nipple-areolar complexes. When this had been obtained and confirmed, he was returned to the supine position and closure proceeded as follows: The inframammary incisions were closed in two layers using a running 3-0 polyglyconate V-Loc suture and then a running subcuticular suture of 4-0 Monocryl. The nipple-areolar complexes were defatted and a portion of the erectile tissue was likewise removed. A new, smaller nipple was then designed with suture and the entire graft was then inset in the new lower and lateral, more masculine position. A bolster dressing of Xeroform and eye pad was then placed and sutured with interrupted 5-0 nylon. Benzoin and Steri-Strips were applied as well as a dry sterile dressing, Epifoam and a compression garment. The patient was then extubated and brought to the recovery room in stable condition. Estimated blood loss - per Anesthesia. The case was clean. Specimen: Right and left breast tissue. MTDD
== END 2017-02-07 14:59 | disposition home or self-care (01) ==
LOC: SCU 07:01 → SRG 07:03 → SCU 07:03
PROVIDERS: ATTEND Surgery Plastic and Reconstructive Surgery
DX: Z41.1 Encounter for cosmetic surgery (principal); F64.1 Dual role transvestism; N64.81 Ptosis of breast; N62 Hypertrophy of breast; N60.81 Other benign mammary dysplasias of right breast; N60.32 Fibrosclerosis of left breast; N60.31 Fibrosclerosis of right breast; F32.9 Major depressive disorder, single episode, unspecified; Z79.890 Hormone replacement therapy; Z79.899 Other long term (current) drug therapy
CPT/HCPCS: 36415; 85025